=== PATIENT | female | born 1980 | race Caucasian/White ===

== ENCOUNTER 2016-10-05 13:06 | Outpatient (CLI) | payer OTHER ==
[~2016-10-05 13:06] MED LIST: ASACOL HD800 MG PO; VICODIN EQUIVAL1 TAB PO; VITAMIN D-31000 UNIT PO; [UNRECOGNIZED DRUG - OTHER]
--- NOTE | 2016-10-05 16:02 | DIAGNOSTIC IMAGING REPORT ---
PROCEDURE: MG BILATERAL DIAGNOSTIC W/CAD INDICATION: Bilateral breast pain. Family history breast carcinoma (grandmother). TECHNIQUE: CC and MLO digital views of each breast with true-lateral digital views of bilateral breasts. In addition, high-resolution bilateral breast ultrasound was performed (18 mHz). COMPARISON: None. FINDINGS: MAMMOGRAM: Computer-aided detection applied. Moderately dense parenchymal pattern. No evidence of mass or suspicious calcification. BREAST ULTRASOUND: Right ultrasound: There are 3-4 heterogeneous hypoechoic areas in the upper outer right breast (5-10 mm) consistent with septated cysts or benign apocrine metaplasia. In addition, there is a smaller 5 mm of simple cyst. Left ultrasound: Normal parenchyma. No evidence of mass or cyst. IMPRESSION: 1. Negative mammogram. 2. Cystic changes and /or benign apocrine metaplasia in the upper outer right breast. While there is no evidence of underlying abnormality, early follow-up right breast ultrasound in 6 months is recommended to confirm stability or resolution. 3. Findings discussed with the patient. RESULT CODE: 3- Probably benign findings - initial short-interval follow-up suggested. A. A negative report should not delay biopsy if a dominant or clinically suspicious mass is present. 10-15% of cancers are not identified by x-ray. B. A negative report may reinforce clinical impression. C. Adenosis and dense breasts may obscure an underlying neoplasm. D. False positive reports average 6-10%. E.. A yearly screening mammogram is recommended. A reminder letter will be scheduled.
== END 2016-10-05 23:00 ==
LOC: MAM SRH 13:06
DX: N64.4 Mastodynia (principal); Z80.3 Family history of malignant neoplasm of breast